=== PATIENT | female | born 1930 | race Two or more races ===

== ENCOUNTER 2018-09-30 09:37 | Emergency (ER) | payer SELFPAY ==
[~2018-09-30] VITALS: Ht 157.5 cm; Wt 40.8 kg
[2018-09-30 10:01] VITALS: BP 0/0
== END 2018-09-30 12:28 | disposition expired ==
LOC: EDBD 09:37 → ER 09:37
DX: I46.9 Cardiac arrest, cause unspecified (principal)
CPT/HCPCS: 92950